=== PATIENT | female | born 1955 | race Asian ===

== ENCOUNTER 2018-02-27 16:54 | Emergency (ER) | payer OTHER, SELFPAY ==
[2018-02-27 16:59] VITALS: BP 151/70; PULSE 67; RESP 20; TEMP 36.6; O2SAT 97; BMI 23.0
--- NOTE | 2018-02-27 17:04 | DI.RAD.S_ITS ---
PROCEDURE: XR SHOULDER LT MIN 2V INDICATIONS: injury, pain TECHNIQUE: 3 views of the shoulder were acquired. COMPARISON: None. FINDINGS: Bones: No fractures or dislocations. No suspicious bony lesions. Visualized ribs appear intact. Mild periarticular osteophyte formation at the acromioclavicular joint humeral joints. Soft tissues: No suspicious soft tissue calcifications. IMPRESSION: Osteoarthritis. No acute fracture. No osseous lesion. If symptoms and/or clinical suspicion for pathology persist, further assessment with repeat, or advanced imaging (e.g., CT, MRI, or bone scan) may be helpful for further assessment. Dictated by: Eduin Flynn M.D. on 02/27/2018 at 17:23 Approved by: Eduin Flynn M.D. on 02/27/2018 at 17:23
--- NOTE | 2018-02-27 17:17 | DI.CT.S_ITS ---
PROCEDURE: CT HEAD/BRAIN WO CON INDICATIONS: hit head knocked out at work today TECHNIQUE: Noncontrast 4.5 mm thick angled axial sections acquired from the foramen magnum to the vertex, with coronal and sagittal reformats. For radiation dose reduction, the following was used: automated exposure control, adjustment of mA and/or kV according to patient size. COMPARISON: None. FINDINGS: Image quality: Excellent. CSF spaces: Basal cisterns are patent. No extra-axial fluid collections. The ventricles are symmetric in size and shape. Brain: No intracranial bleeds or masses. There is cerebral volume loss for age, with resultant ventricular and sulcal prominence. There are periventricular and deep white matter chronic small vessel ischemic changes. There is intracranial internal carotid artery atherosclerosis. Skull and face: Calvarium and visualized facial bones appear intact, without suspicious lesions. Sinuses: Visualized sinuses and mastoids are clear. IMPRESSION: No acute intracranial abnormality. Dictated by: Eduin Flynn M.D. on 02/27/2018 at 17:43 Approved by: Eduin Flynn M.D. on 02/27/2018 at 17:44
--- NOTE | 2018-02-27 19:19 | ED.FALL ---
HPI - Fall General Chief Complaint: Fall Stated Complaint: glf at work Time Seen by Provider: 02/27/18 18:47 Source: patient and family Mode of arrival: ambulatory Limitations: no limitations History of Present Illness HPI Narrative: 62F nonsmoker presents to the emergency department with a ground level fall and possible loss of consciousness just prior to her arrival. She states she felt a little bit dizzy and the next thing she knew she was surrounded by coworkers. She denies any ongoing symptoms. She denies chest pain or shortness of breath. She denies any recent illness with nausea, vomiting or diarrhea. She denies any fever or chills. She has a small abrasion above her left eye but denies any other injuries. She takes no blood thinners. She admits to frequent epigastric pain after drinking coffee or or misuse, she states that it feels burning in nature MD complaint: fall Onset (ago): minute(s) Fall from: standing Fall witnessed: yes, by bystander Place fall occurred: work Loss of consciousness: unsure Prolonged down time: no Symptoms prior to fall: lightheadedness Location of injury: head Severity: mild Related Data Home Medications Medication Instructions Recorded Confirmed DILTIAZEM HCL (DILTIA XT~) #0 07/10/12 simvastatin [Zocor] #0 07/10/12 Allergies Allergy/AdvReac Type Severity Reaction Status Date / Time LISINOPRIL Allergy Unknown Uncoded 08/22/17 12:24 Review of Systems Review of Systems All systems reviewed & are unremarkable except as noted in HPI and below Constitutional Denies chills, Denies fever(s), Denies lethargy and Denies weakness Eyes Denies change in vision, Denies eye discharge, Denies irritation and Denies loss of vision ENT Ears, Nose, Mouth, and Throat: Denies change in voice, Denies neck pain and Denies sore throat Cardiovascular Denies chest pain, Denies irregular heart rhythm, Denies lightheadedness, Denies palpitations, Denies dyspnea, Denies dyspnea on exertion and Denies orthopnea Respiratory Denies cough, Denies dyspnea, Denies dyspnea on exertion and Denies wheezing Gastrointestinal Gastrointestinal: Denies abdominal pain, Denies change in bowel habits, Denies diarrhea, Denies nausea and Denies vomiting Genitourinary Denies hematuria, Denies flank pain, Denies urinary incontinence and Denies urinary urgency Musculoskeletal Denies neck pain Integumentary/Breasts Denies pruritus, Denies erythema, Denies rash and Denies wounds Neurologic Denies confusion, Denies loss of vision and Denies weakness Psychiatric Denies anxiety, Denies confusion, Denies depression, Denies homicidal ideation and Denies suicidal ideation Endocrine Denies palpitations Hematologic/Lymphatic Denies easy bruising Allergic/Immunologic Denies wheezing Exam Narrative Exam Narrative: Pleasant 62-year-old female resting comfortably, in no obvious distress Initial Vital Signs Initial Vital Signs: Vital Signs Temperature 97.8 F 02/27/18 16:59 Pulse Rate 67 02/27/18 16:59 Respiratory Rate 20 02/27/18 16:59 Blood Pressure 151/70 H 02/27/18 16:59 Pulse Oximetry 97 02/27/18 16:59 Const General: cooperative and well developed Nutritional Appearance: well nourished Orientation: alert, awake, oriented x3 and not confused HENMT Head: abrasion (Small superficial abrasion above left lateral brow) Ears: external ears normal and TM's normal bilaterally Nose: external nose normal and No nasal discharge Face and sinus: sinuses nontender, face symmetric, no sinus tenderness and No dry mucous membranes Mouth: oral mucosae normal and moist mucous membranes Teeth and gingiva: dentition normal Throat: tonsils normal and uvula midline Eyes General: appearance normal, both eyes and all related structures Eyelids: eyelids normal Conjunctivae: conjunctivae normal Sclera: sclerae normal Pupils: PERRL EOM: EOM intact bilaterally Chest Chest: normal inspection of the chest Cardio Rate: regular rate Rhythm: regular rhythm Heart Sounds: no click, no gallops, no murmurs and no rubs Pulses: normal peripheral pulses GI Inspection: non-distended Palpation: soft, no hepatosplenomegaly, No guarding, No pulsatile mass and No tender Auscultation: normal bowel sounds Back/Spine/Pelvis Back: No CVA tenderness Cervical Spine: cervical ROM normal and No pain with cervical ROM Thoracic/Lumbar Spine: thoracic and lumbar spine normal to inspection Skin General: no rashes or lesions noted, No jaundice and No petechiae Trauma: abrasion Neuro General: alert, oriented x3, gait normal and no focal motor deficits Speech: speech normal Extrem General: full ROM, no clubbing, cyanosis or edema, no pedal edema and no calf tenderness Psych Appearance: well kempt Mental Status: mental status grossly normal Attitude: cooperative Thought Content: normal and suicidality Judgment: judgment good [facility] Social History Smoking Status: Never smoker Course Orders Ordered: Discontinued Medications Sodium Chloride (Normal Saline 0.9%) 1,000 mls @ 1,000 mls/hr IV BOLUS ONE Stop: 02/27/18 20:13 Last Infusion: 02/27/18 20:44 Dose: 0 mls/hr Admin: 02/27/18 19:40 Dose: 1,000 mls/hr Reevaluation(s) Reevaluation #1: Patient continues to feel at her baseline. Reevaluation #2: She is able to complete orthostatics without any symptoms and ambulates to the department with no trouble Vital Signs - 8 hr 02/27/18 16:59 Temperature 97.8 F Pulse Rate 67 Respiratory Rate 20 Blood Pressure 151/70 H Pulse Oximetry 97 MDM - Fall Differential Diagnosis Likely syncope, concussion with loss of consciousness and concussion without loss of consciousness Medical Records Attestation: I reviewed the patient's medical records. Lab Data Attestation: I reviewed the patient's lab results. Result diagrams: 02/27/18 19:47 02/27/18 19:47 Lab Results 02/27/18 02/27/18 Range/Units 19:47 19:47 WBC 12.2 H (4.5-11.0) X10^3/uL RBC 4.99 (4.0-5.2) X10^6/uL Hgb 15.6 (12.0-16.0) g/dL Hct 46.1 H (36-46) % MCV 92.4 (80-100) fL MCH 31.3 (26-34) PG MCHC 33.9 (30-36) % RDW 12.0 (11.6-14.8) % Plt Count 182 (150-400) X10^3/uL Neut % (Auto) 81.5 H (50-75) % Lymph % (Auto) 11.8 L (25-40) % Quay % (Auto) 5.2 (3-14) % Eos % (Auto) 1.0 L (2-4) % Baso % (Auto) 0.5 (0-2) % Neut # (Auto) 9900 H (9367-5591) /uL Sodium 142 (137-145) mmol/L Potassium 4.2 (3.4-5.1) mmol/L Chloride 103 (98-107) mmol/L Carbon Dioxide 28 (22-32) mmol/L BUN 17 (7-17) mg/dL Creatinine 0.60 (0.52-1.04) mg/dL Estimated GFR > 60.0 (>60) mL/min BUN/Creatinine Ratio 28.3 H (6-22) Glucose 109 (80-110) mg/dL Calcium 9.8 (8.4-10.2) mg/dL Total Bilirubin 0.4 (0.2-1.3) mg/dL AST 36 (14-36) IU/L ALT 31 (9-52) IU/L Alkaline Phosphatase 66 (38-126) U/L Total Creatine Kinase 124 (30-135) U/L CK-MB (CK-2) 1.44 (<2.37) ng/mL CK-MB (CK-2) Rel Index 1.2 L (1.5-5.0) % Troponin I < 0.012 (0.01-0.034) ng/mL Total Protein 8.2 (6.3-8.2) g/dL Albumin 5.2 H (3.5-5.0) g/dL Globulin 3.0 (1.7-4.1) g/dL Albumin/Globulin Ratio 1.7 (1.0-2.8) Urine Dip Bedside Urine Glucose Negative Bedside Urine Bilirubin - Negative Bedside Urine Ketone - Negative Urine Specific [place] 1.015 Bedside Urine Occult Blood - Negative Bedside Urine pH 6.5 Bedside Urine Protein - Negative Bedside Urine Urobilinogen - Negative Bedside Urine Nitrite - Negative Bedside Urine Leukocytes - Negative Esterase Imaging Data CT scan - head: Radiologist's impression: [address] [address] [address] Scan Report Signed Patient: Mary Herzog PMR#: [id number] : 5Acct:[id number] Age/Sex: 62 / FDate of Service: 02/27/18 Loc: ED Accession Number: [id number] Procedure: CT head/brain wo con Ordering Provider: Daniel,Aleida [employer] PROCEDURE: CT HEAD/BRAIN WO CON INDICATIONS: hit head knocked out at work today TECHNIQUE: Noncontrast 4.5 mm thick angled axial sections acquired from the foramen magnum to the vertex, with coronal and sagittal reformats. For radiation dose reduction, the following was used: automated exposure control, adjustment of mA and/or kV according to patient size. COMPARISON: None. FINDINGS: Image quality: Excellent. CSF spaces: Basal cisterns are patent. No extra-axial fluid collections. The ventricles are symmetric in size and shape. Brain: No intracranial bleeds or masses. There is cerebral volume loss for age, with resultant ventricular and sulcal prominence. There are periventricular and deep white matter chronic small vessel ischemic changes. There is intracranial internal carotid artery atherosclerosis. Skull and face: Calvarium and visualized facial bones appear intact, without suspicious lesions. Sinuses: Visualized sinuses and mastoids are clear. IMPRESSION: No acute intracranial abnormality. Dictated by: Eduin Flynn M.D. on 02/27/2018 at 17:43 Approved by: Eduin Flynn M.D. on 02/27/2018 at 17:44 Shoulder Xray: Radiologist's impression: XRay Report Signed Patient: Mary Herzog PMR#: [id number] : 5Acct:[id number] Age/Sex: 62 / FDate of Service: 02/27/18 Loc: ED Accession Number: [id number] Procedure: XR shoulder LT min 2V Ordering Provider: Laurie Russo MD PROCEDURE: XR SHOULDER LT MIN 2V INDICATIONS: injury, pain TECHNIQUE: 3 views of the shoulder were acquired. COMPARISON: None. FINDINGS: Bones: No fractures or dislocations. No suspicious bony lesions. Visualized ribs appear intact. Mild periarticular osteophyte formation at the acromioclavicular joint humeral joints. Soft tissues: No suspicious soft tissue calcifications. IMPRESSION: Osteoarthritis. No acute fracture. No osseous lesion. If symptoms and/or clinical suspicion for pathology persist, further assessment with repeat, or advanced imaging (e.g., CT, MRI, or bone scan) may be helpful for further assessment. Dictated by: Eduin Flynn M.D. on 02/27/2018 at 17:23 Approved by: Eduin Flynn M.D. on 02/27/2018 at 17:23 Discharge Plan Departure Patient Disposition: Home Clinical Impression: Abrasion of scalp, Concussion Discharge Date/Time: 02/27/18 22:07 Interventions: ED Discharge Assessment Last Done: 02/27/18 22:07 Instructions: DI for Abrasion Activity Restrictions/Additional Instructions: *You have been diagnosed with [ ground level fall with head injury, loss of consciousness, concussion, scalp abrasion] *What to do: *continue to take medications as directed *Follow up with your primary care provider in 2-3 days, call for an appointment. Let them know you were seen in the Emergency Department and that we ask that you be seen in follow up *Return to ER if you should have any new, worsening or concerning symptoms Prescriptions: No Action simvastatin [Zocor] 5 MG tablet Qty: 0 RF: 0 DILTIAZEM HCL (DILTIA XT~) Qty: 0 RF: 0
[2018-02-27] MEDS: SODIUM CHLORIDE 0.9% 1,000 ML 1000 ML IV (19:40)
[2018-02-27 19:55] LABS: Add Manual Diff / Slide Review NO; Basophils Percent Auto 0.5 % (0-2); Hematocrit 46.1 % (36-46); Hemoglobin 15.6 g/dL (12.0-16.0); Lymphocytes Percent Auto 11.8 % (25-40); Mean Corpuscular HGB Conc 33.9 % (30-36); Mean Corpuscular Hemoglobin 31.3 PG (26-34); Mean Corpuscular Volume 92.4 fL (80-100); Monocytes Percent Auto 5.2 % (3-14); Neutrophils Absolute Auto 9900 /uL (3000-5900); Neutrophils Percent Auto 81.5 % (50-75); Platelet Count 182 X10^3/uL (150-400); Red Blood Cell Count 4.99 X10^6/uL (4.0-5.2); White Blood Cell Count 12.2 X10^3/uL (4.5-11.0)
[2018-02-27 20:08] LABS: Alanine Aminotransferase 31 IU/L (9-52); Albumin 5.2 g/dL (3.5-5.0); Albumin Globulin Ratio 1.7 (1.0-2.8); Alkaline Phosphatase 66 U/L (38-126); Aspartate Aminotransferase 36 IU/L (14-36); BUN Creatinine Ratio 28.3 (6-22); Bilirubin Total 0.4 mg/dL (0.2-1.3); Blood Urea Nitrogen 17 mg/dL (7-17); Calcium 9.8 mg/dL (8.4-10.2); Carbon Dioxide 28 mmol/L (22-32); Chloride 103 mmol/L (98-107); Creatine Kinase 124 U/L (30-135); Estimated Glomerular Filt Rate > 60.0 mL/min (>60); Glucose 109 mg/dL (80-110); HEMOLYSIS 19 (0-50); Potassium 4.2 mmol/L (3.4-5.1); Sodium 142 mmol/L (137-145); Total Protein 8.2 g/dL (6.3-8.2)
[2018-02-27 20:18] VITALS: BP 129/54; PULSE 66; RESP 15; O2SAT 99
[2018-02-27 20:20] LABS: Troponin I < 0.012 ng/mL (0.01-0.034)
[2018-02-27 20:23] LABS: CKMB % Relative Index 1.2 % (1.5-5.0); Creatine Kinase MB 1.44 ng/mL (<2.37)
[2018-02-27 21:14] VITALS: BP 140/53; PULSE 66; RESP 14; O2SAT 98
[2018-02-27 21:51] VITALS: BP 131/58; BP 144/68; BP 159/70; PULSE 73; PULSE 77; PULSE 78
== END 2018-02-27 22:07 | disposition home or self-care (01) ==
PROVIDERS: Emergency Provider Emergency Medicine; Family Provider Family Medicine; PCP Family Medicine
DX: S00.01XA Abrasion of scalp, initial encounter (principal); S06.0X9A Concussion with loss of consciousness of unspecified duration, initial encounter; W18.30XA Fall on same level, unspecified, initial encounter
CPT/HCPCS: 36591; 70450; 73030; 80053; 81003; 82550; 82553; 84484; 85025; 93005; 93010; 96360; 99283; 99285

== ENCOUNTER 2018-08-23 09:33 | Emergency (ER) | payer OTHER, SELFPAY ==
[2018-08-23 09:35] VITALS: BP 151/70; PULSE 105; RESP 18; TEMP 38.4; O2SAT 95
[2018-08-23] MEDS: ACETAMINOPHEN 325 MG TABLET 975 MG PO (09:57)
--- NOTE | 2018-08-23 10:01 | DI.RAD.S_ITS ---
PROCEDURE: XR CHEST 2V INDICATIONS: shortness of breath TECHNIQUE: 2 views of the chest were acquired. COMPARISON: [facility], , CHEST 1 VIEW, 08/21/2013, 16:22. FINDINGS: Surgical changes and devices: None. Lungs and pleura: Lungs are clear. No pleural effusions or pneumothorax. Mediastinum: Mediastinal contours are normal. Heart size is normal. There is aortic atherosclerosis. Bones and chest wall: No suspicious bony abnormalities. Soft tissues appear unremarkable. IMPRESSION: Unremarkable chest. No acute cardiopulmonary process is evident. Dictated by: Rafael Paris M.D. on 08/23/2018 at 9:24 Approved by: Rafael Paris M.D. on 08/23/2018 at 9:25
--- NOTE | 2018-08-23 10:11 | ED.FEVER ---
HPI - Fever General Chief Complaint: Fever Stated Complaint: cough,sore throat, stomach pain,back pain Time Seen by Provider: 08/23/18 09:42 Source: patient and family Mode of arrival: ambulatory Limitations: no limitations History of Present Illness HPI Narrative: 62-year-old female nonsmoker with history of hypertension presents with 4 days of low-grade fever, sore throat, cough, body aches and back pain. She does have some sick work friends with similar symptoms. She denies any abdominal pain nor nausea, vomiting or diarrhea. She denies any significant fatigue or shortness of breath. She has had pneumonia before and wants to be sure she does not have another episode MD complaint: fever Onset (ago): day(s) Maximum Temperature: 101.2 F Temperature Source: oral Context: sick contacts Relieving factors: nothing Exacerbating factors: nothing Treatments prior to arrival fever: acetaminophen Related Data Home Medications Medication Instructions Recorded Confirmed atorvastatin 20 mg PO DAILY 08/23/18 08/23/18 diltiazem HCl 120 mg PO DAILY 08/23/18 08/23/18 losartan 25 mg PO DAILY 08/23/18 08/23/18 Previous Rx's Medication Instructions Recorded benzonatate [Tessalon Perles] 100 mg PO BID-TID PRN #14 cap 08/23/18 Allergies Allergy/AdvReac Type Severity Reaction Status Date / Time lisinopril Allergy Severe Anaphylaxis Verified 08/23/18 09:45 Review of Systems Constitutional Reports body ache(s), Reports chills, Reports fever(s), Denies lethargy and Denies weakness Eyes Denies change in vision, Denies eye discharge, Denies irritation and Denies loss of vision ENT Ears, Nose, Mouth, and Throat: Denies change in voice, Denies neck pain and Reports sore throat Cardiovascular Denies chest pain, Denies irregular heart rhythm, Denies lightheadedness, Denies palpitations, Denies dyspnea, Denies dyspnea on exertion and Denies orthopnea Respiratory Reports cough, Denies dyspnea, Denies dyspnea on exertion and Denies wheezing Gastrointestinal Gastrointestinal: Denies abdominal pain, Denies change in bowel habits, Denies diarrhea, Denies nausea and Denies vomiting Genitourinary Denies hematuria, Denies flank pain, Denies urinary incontinence and Denies urinary urgency Musculoskeletal Reports back pain and Denies neck pain Integumentary/Breasts Denies pruritus, Denies erythema, Denies rash and Denies wounds Neurologic Denies confusion, Denies loss of vision and Denies weakness Psychiatric Denies anxiety, Denies confusion, Denies depression, Denies homicidal ideation and Denies suicidal ideation Endocrine Denies palpitations Hematologic/Lymphatic Denies easy bruising Allergic/Immunologic Denies wheezing [facility] Social History Smoking Status: Never smoker Social History Smoking Status: Never smoker Exam Narrative Exam Narrative: GENERAL:62F, no obvious HEAD: Atraumatic. Normocephalic. No temporal or scalp tenderness. EYES: Pupils equal round and reactive. Extraocular motions intact. No scleral icterus. No injection or drainage. ENT: Nose without bleeding, purulent drainage or septal hematoma. Throat without erythema, tonsillar hypertrophy or exudate. Uvula midline. Airway patent. NECK: Trachea midline. No JVD or lymphadenopathy. Supple, nontender, no meningeal signs. CARDIOVASCULAR: Regular rate and rhythm without murmurs, gallops, or rubs. RESPIRATORY: Clear to auscultation. Breath sounds equal bilaterally. No wheezes, rales, or rhonchi. GASTROINTESTINAL: Abdomen soft, non-tender, nondistended. No hepato-splenomegaly, or palpable masses. No guarding. EXTREMITIES: No clubbing, cyanosis, or edema. No joint tenderness, effusion, or edema noted. BACK: Nontender without deformity or crepitance. No flank tenderness. NEURO: AOx3. SKIN: No rash or erythema. Initial Vital Signs Initial Vital Signs: Vital Signs Temperature 101.2 F H 08/23/18 09:35 Pulse Rate 105 H 08/23/18 09:35 Respiratory Rate 18 08/23/18 09:35 Blood Pressure 151/70 H 08/23/18 09:35 Pulse Oximetry 95 08/23/18 09:35 Course Orders Ordered: ED Orders 08/23/18 09:45 Influenza A and B by PCR Rapid Stat 08/23/18 10:01 XR chest 2V Stat Discontinued Medications Acetaminophen (Tylenol) 975 mg PO NOW ONE Stop: 08/23/18 09:46 Last Admin: 08/23/18 09:57 Dose: 975 mg Vital Signs - 8 hr 08/23/18 09:35 08/23/18 10:56 08/23/18 11:05 Temperature 101.2 F H 99.4 F Pulse Rate 105 H 94 H Respiratory Rate 18 16 Blood Pressure 151/70 H Blood Pressure [Left Arm] 120/55 L Pulse Oximetry 95 95 MDM - Fever Lab Data Lab Results 08/23/18 Range/Units 09:45 Influenza A & B (PCR) Negative (Negative) Imaging Data Chest x-ray: Radiologist's impression: Mary Herzog P 62 F 1955 [address] [address] XRay Report Signed Patient: Mary Herzog PMR#: [id number] : 5Acct:[id number] Age/Sex: 62 / FDate of Service: 08/23/18 Loc: ED Accession Number: [id number] Procedure: XR chest 2V Ordering Provider: Karlos Nixon D.O. PROCEDURE: XR CHEST 2V INDICATIONS: shortness of breath TECHNIQUE: 2 views of the chest were acquired. COMPARISON: [facility], , CHEST 1 VIEW, 08/21/2013, 16:22. FINDINGS: Surgical changes and devices: None. Lungs and pleura: Lungs are clear. No pleural effusions or pneumothorax. Mediastinum: Mediastinal contours are normal. Heart size is normal. There is aortic atherosclerosis. Bones and chest wall: No suspicious bony abnormalities. Soft tissues appear unremarkable. IMPRESSION: Unremarkable chest. No acute cardiopulmonary process is evident. Dictated by: Rafael Paris M.D. on 08/23/2018 at 9:24 Approved by: Rafael Paris M.D. on 08/23/2018 at 9:25 Discharge Plan Departure Patient Disposition: Home Clinical Impression: Upper respiratory infection, viral Discharge Date/Time: 08/23/18 11:07 Interventions: ED Discharge Assessment Last Done: 08/23/18 11:06 Instructions: DI for Fever (Symptom) -- Adult Activity Restrictions/Additional Instructions: *You have been diagnosed with [acute viral upper respiratory infection ] *What to do: *Take medications as directed: A prescription has been electronically transmitted to [email or web address] at your request *Follow up with your primary care provider in 2-3 days, call for an appointment. Let them know you were seen in the Emergency Department and that we ask that you be seen in follow up *Return to ER if you should have any new, worsening or concerning symptoms Prescriptions: New benzonatate [Tessalon Perles] 100 mg capsule 100 mg PO BID-TID PRN (Reason: cough) Qty: 14 RF: 0 No Action atorvastatin 20 mg tablet 20 mg PO DAILY RF: 0 diltiazem HCl 120 mg capsule,extended release 24 hr 120 mg PO DAILY RF: 0 losartan 25 mg tablet 25 mg PO DAILY RF: 0 Referrals: Joaquin Mike MD [Primary Care Provider] - Stand Alone Forms: Work Release Note
--- NOTE | 2018-08-23 10:14 | ED_ITS ---
HPI - Fever General Chief Complaint: Fever Stated Complaint: cough,sore throat, stomach pain,back pain Time Seen by Provider: 08/23/18 09:42 Source: patient and family Mode of arrival: ambulatory Limitations: no limitations History of Present Illness HPI Narrative: 62-year-old female nonsmoker with history of hypertension presents with 4 days of low-grade fever, sore throat, cough, body aches and back pain. She does have some sick work friends with similar symptoms. She denies any abdominal pain nor nausea, vomiting or diarrhea. She denies any significant fatigue or shortness of breath. She has had pneumonia before and wants to be sure she does not have another episode MD complaint: fever Onset (ago): day(s) Maximum Temperature: 101.2 F Temperature Source: oral Context: sick contacts Relieving factors: nothing Exacerbating factors: nothing Treatments prior to arrival fever: acetaminophen Related Data Home Medications Medication Instructions Recorded Confirmed atorvastatin 20 mg PO DAILY 08/23/18 08/23/18 diltiazem HCl 120 mg PO DAILY 08/23/18 08/23/18 losartan 25 mg PO DAILY 08/23/18 08/23/18 Previous Rx's Medication Instructions Recorded benzonatate [Tessalon Perles] 100 mg PO BID-TID PRN #14 cap 08/23/18 Allergies Allergy/AdvReac Type Severity Reaction Status Date / Time lisinopril Allergy Severe Anaphylaxis Verified 08/23/18 09:45 Review of Systems Constitutional Reports body ache(s), Reports chills, Reports fever(s), Denies lethargy and Denies weakness Eyes Denies change in vision, Denies eye discharge, Denies irritation and Denies loss of vision ENT Ears, Nose, Mouth, and Throat: Denies change in voice, Denies neck pain and Reports sore throat Cardiovascular Denies chest pain, Denies irregular heart rhythm, Denies lightheadedness, Denies palpitations, Denies dyspnea, Denies dyspnea on exertion and Denies orthopnea Respiratory Reports cough, Denies dyspnea, Denies dyspnea on exertion and Denies wheezing Gastrointestinal Gastrointestinal: Denies abdominal pain, Denies change in bowel habits, Denies diarrhea, Denies nausea and Denies vomiting Genitourinary Denies hematuria, Denies flank pain, Denies urinary incontinence and Denies urinary urgency Musculoskeletal Reports back pain and Denies neck pain Integumentary/Breasts Denies pruritus, Denies erythema, Denies rash and Denies wounds Neurologic Denies confusion, Denies loss of vision and Denies weakness Psychiatric Denies anxiety, Denies confusion, Denies depression, Denies homicidal ideation and Denies suicidal ideation Endocrine Denies palpitations Hematologic/Lymphatic Denies easy bruising Allergic/Immunologic Denies wheezing [facility] Social History Smoking Status: Never smoker Social History Smoking Status: Never smoker Exam Narrative Exam Narrative: GENERAL:62F, no obvious HEAD: Atraumatic. Normocephalic. No temporal or scalp tenderness. EYES: Pupils equal round and reactive. Extraocular motions intact. No scleral icterus. No injection or drainage. ENT: Nose without bleeding, purulent drainage or septal hematoma. Throat without erythema, tonsillar hypertrophy or exudate. Uvula midline. Airway patent. NECK: Trachea midline. No JVD or lymphadenopathy. Supple, nontender, no meningeal signs. CARDIOVASCULAR: Regular rate and rhythm without murmurs, gallops, or rubs. RESPIRATORY: Clear to auscultation. Breath sounds equal bilaterally. No wheezes, rales, or rhonchi. GASTROINTESTINAL: Abdomen soft, non-tender, nondistended. No hepato- splenomegaly, or palpable masses. No guarding. EXTREMITIES: No clubbing, cyanosis, or edema. No joint tenderness, effusion, or edema noted. BACK: Nontender without deformity or crepitance. No flank tenderness. NEURO: AOx3. SKIN: No rash or erythema. Initial Vital Signs Initial Vital Signs: Vital Signs Temperature 101.2 F H 08/23/18 09:35 Pulse Rate 105 H 08/23/18 09:35 Respiratory Rate 18 08/23/18 09:35 Blood Pressure 151/70 H 08/23/18 09:35 Pulse Oximetry 95 08/23/18 09:35 Course Orders Ordered: ED Orders 08/23/18 09:45 Influenza A and B by PCR Rapid Stat 08/23/18 10:01 XR chest 2V Stat Discontinued Medications Acetaminophen (Tylenol) 975 mg PO NOW ONE Stop: 08/23/18 09:46 Last Admin: 08/23/18 09:57 Dose: 975 mg Vital Signs - 8 hr 08/23/18 09:35 08/23/18 10:56 08/23/18 11:05 Temperature 101.2 F H 99.4 F Pulse Rate 105 H 94 H Respiratory Rate 18 16 Blood Pressure 151/70 H Blood Pressure [Left Arm] 120/55 L Pulse Oximetry 95 95 MDM - Fever Lab Data Lab Results 08/23/18 Range/Units 09:45 Influenza A & B (PCR) Negative (Negative) Imaging Data Chest x-ray: Radiologist's impression: Mary Herzog P 62 F [address] [address] XRay Report Signed Patient: Mary Herzog PMR#: [id number] : 5Acct:[id number] Age/Sex: 62 / FDate of Service: 08/23/18 Loc: ED Accession Number: [id number] Procedure: XR chest 2V Ordering Provider: Karlos Nixon D.O. PROCEDURE: XR CHEST 2V INDICATIONS: shortness of breath TECHNIQUE: 2 views of the chest were acquired. COMPARISON: [facility], , CHEST 1 VIEW, 08/21/2013, 16:22. FINDINGS: Surgical changes and devices: None. Lungs and pleura: Lungs are clear. No pleural effusions or pneumothorax. Mediastinum: Mediastinal contours are normal. Heart size is normal. There is aortic atherosclerosis. Bones and chest wall: No suspicious bony abnormalities. Soft tissues appear unremarkable. IMPRESSION: Unremarkable chest. No acute cardiopulmonary process is evident. Dictated by: Rafael Paris M.D. on 08/23/2018 at 9:24 Approved by: Rafael Paris M.D. on 08/23/2018 at 9:25 Discharge Plan Departure Patient Disposition: Home Clinical Impression: Upper respiratory infection, viral Discharge Date/Time: 08/23/18 11:07 Interventions: ED Discharge Assessment Last Done: 08/23/18 11:06 Instructions: DI for Fever (Symptom) -- Adult Activity Restrictions/Additional Instructions: *You have been diagnosed with [acute viral upper respiratory infection ] *What to do: *Take medications as directed: A prescription has been electronically transmitted to [facility] at your request *Follow up with your primary care provider in 2-3 days, call for an appointment. Let them know you were seen in the Emergency Department and that we ask that you be seen in follow up *Return to ER if you should have any new, worsening or concerning symptoms Prescriptions: New benzonatate [Tessalon Perles] 100 mg capsule 100 mg PO BID-TID PRN (Reason: cough) Qty: 14 RF: 0 No Action atorvastatin 20 mg tablet 20 mg PO DAILY RF: 0 diltiazem HCl 120 mg capsule,extended release 24 hr 120 mg PO DAILY RF: 0 losartan 25 mg tablet 25 mg PO DAILY RF: 0 Referrals: Joaquin Mike MD [Primary Care Provider] - Stand Alone Forms: Work Release Note
[2018-08-23 10:41] LABS: Influenza A and B by PCR Rapid Negative (Negative)
[2018-08-23 10:56] VITALS: BP 120/55; PULSE 94; RESP 16; O2SAT 95
[2018-08-23 11:05] VITALS: TEMP 37.4
== END 2018-08-23 11:07 | disposition home or self-care (01) ==
PROVIDERS: Emergency Provider Emergency Medicine; Family Provider Family Medicine; PCP Family Medicine
DX: J06.9 Acute upper respiratory infection, unspecified (principal)
CPT/HCPCS: 71046; 87400; 99282; 99283

== ENCOUNTER 2019-01-23 20:24 | Emergency (ER) | payer OTHER, SELFPAY ==
[2019-01-23 20:32] VITALS: BP 141/55; PULSE 68; RESP 20; TEMP 36.7; O2SAT 97
[2019-01-23 21:17] LABS: Add Manual Diff / Slide Review NO; Basophils Absolute Auto 100 /uL (0-100); Eosinophils Absolute Auto 200 /uL (0-450); Eosinophils Percent Auto 3.5 % (2-4); Hematocrit 43.4 % (36-46); Hemoglobin 14.9 g/dL (12.0-16.0); Lymphocytes Absolute Auto 1600 /uL (1100-4500); Lymphocytes Percent Auto 26.9 % (25-40); Mean Corpuscular HGB Conc 34.3 % (30-36); Mean Corpuscular Hemoglobin 31.6 PG (26-34); Mean Corpuscular Volume 92.2 fL (80-100); Monocytes Absolute Auto 400 /uL (0-900); Monocytes Percent Auto 7.4 % (3-14); Neutrophils Absolute Auto 3600 /uL (1500-7000); Neutrophils Percent Auto 61.2 % (50-75); Platelet Count 159 X10^3/uL (150-400); Red Cell Distribution Width 12.1 % (11.6-14.8)
[2019-01-23 21:24] LABS: Blood Urea Nitrogen 18 mg/dL (7-17); Carbon Dioxide 29 mmol/L (22-32); Chloride 101 mmol/L (98-107); Estimated Glomerular Filt Rate > 60.0 mL/min (>60); Glucose 127 mg/dL (80-110); HEMOLYSIS 16 (0-50); Potassium 3.9 mmol/L (3.4-5.1); Sodium 140 mmol/L (137-145)
[2019-01-23 21:45] VITALS: BP 134/94; PULSE 54; RESP 14; O2SAT 95
[2019-01-23] MEDS: MECLIZINE HCL 12.5 MG TABLET 25 MG PO (21:58)
--- NOTE | 2019-01-23 22:39 | PC.NURSE ---
pt ambulating to bathroom
--- NOTE | 2019-01-23 22:46 | ED.GENADULT ---
HPI - General Adult General Chief complaint: Dizziness Stated complaint: thinks having a stroke Time Seen by Provider: 01/23/19 21:39 Source: patient Mode of arrival: ambulatory Limitations: no limitations History of Present Illness HPI narrative: A 63-year-old female here for evaluation of dizziness. Patient states that it started earlier today. It started after she stood of from bending over. She describes it as a room spinning sensation. She has had symptoms like this in the past that resolved on their own. She denies any other associated symptoms. She was told to come in for evaluation by her coworkers. Related Data Home Medications Medication Instructions Recorded Confirmed atorvastatin 20 mg PO DAILY 08/23/18 08/23/18 diltiazem HCl 120 mg PO DAILY 08/23/18 08/23/18 losartan 25 mg PO DAILY 08/23/18 08/23/18 Previous Rx's Medication Instructions Recorded benzonatate [Tessalon Perles] 100 mg PO BID-TID PRN #14 cap 08/23/18 loratadine [Claritin] 10 mg PO DAILY PRN #30 tab 01/23/19 meclizine 25 mg PO BID-TID PRN #14 tab 01/23/19 Allergies Allergy/AdvReac Type Severity Reaction Status Date / Time lisinopril Allergy Severe Anaphylaxis Verified 08/23/18 09:45 Review of Systems Constitutional Constitutional: Denies fatigue, Denies fever(s), Denies frequent falls and Denies headache(s) Eyes Eyes: Denies blurry vision, Denies change in vision and Denies diplopia ENT Ears, Nose, Mouth, and Throat: Reports vertigo, Reports dizziness, Denies facial pain, Denies headache(s), Denies tinnitus, Denies sinus pressure and Denies sore throat Cardiovascular Cardiovascular: Denies chest pain and Denies dyspnea Respiratory Respiratory: Denies cough and Denies dyspnea Gastrointestinal Gastrointestinal: Denies abdominal pain, Denies nausea and Denies vomiting Genitourinary Genitourinary: Denies dysuria Musculoskeletal Musculoskeletal: Denies myalgias, Denies arthralgias and Denies numbness Integumentary/Breasts Skin/Breast: Denies lesions and Denies rash Neurologic Neurologic: Denies abnormal speech, Denies behavioral changes, Denies confusion, Reports vertigo, Reports dizziness, Denies frequent falls, Denies headache(s), Denies focal weakness, Denies numbness, Denies radicular pain and Denies paresthesias Psychiatric Psychiatric: Denies behavioral changes and Denies confusion Endocrine Endocrine: Denies fatigue Hematologic/Lymphatic Hematologic/Lymphatic: Denies easy bleeding and Denies easy bruising Allergic/Immunologic Allergic/Immunologic: Denies urticaria PFSH Medical History Hyperlipidemia (Acute) Social History Smoking Status: Never smoker Social History Smoking Status: Never smoker Exam Initial Vital Signs Initial Vital Signs: Vital Signs Temperature 98.1 F 01/23/19 20:32 Pulse Rate 68 01/23/19 20:32 Respiratory Rate 20 01/23/19 20:32 Blood Pressure 141/55 H 01/23/19 20:32 Pulse Oximetry 97 01/23/19 20:32 Const General: cooperative, healthy appearing, comfortable, well developed, well groomed and No acute distress Orientation: alert, awake and oriented x3 HENMT Head: normal to inspection and normocephalic Ears: TM normal on the right and TM abnormal bulging on the left and dull on the left; not erythematous Eyes Pupils: PERRL EOM: EOM intact bilaterally Resp Effort & Inspection: normal respiratory effort Auscultation: clear to auscultation bilaterally Cardio Rate: regular rate Rhythm: regular rhythm GI Inspection: non-distended Palpation: soft Skin Lesions: no lesions Rashes: no rashes Neuro General: alert and awake Cranial Nerves: CN's II-XI intact bilaterally Cognition: normal cognition Speech: speech normal Gait: normal gait Motor: muscle tone normal throughout Sensory Exam: no sensory deficits noted Extrem General: normal to inspection and capillary refill normal Psych Appearance: grossly normal and well kempt Scores GCS Bertrand coma scale eye opening: Spontaneous Bertrand coma scale verbal response: Orientated Bertrand coma scale motor response: Obey commands Bertrand coma scale total score: 15 Course Orders Ordered: ED Orders 01/23/19 20:33 EKG-12 Lead Stat 01/23/19 21:00 BMP [Basic Metabolic Panel] Stat Complete Blood Count AUTO DIFF Stat Discontinued Medications Meclizine HCl (Antivert) 25 mg PO NOW ONE Stop: 01/23/19 21:48 Last Admin: 01/23/19 21:58 Dose: 25 mg Documented by: HFARRINGTO Vital Signs Vital signs: Vital Signs - 8 hr 01/23/19 20:32 01/23/19 21:45 01/23/19 22:51 Temperature 98.1 F Pulse Rate 68 54 L Respiratory Rate 20 14 Blood Pressure 141/55 H Blood Pressure [Left Arm] 134/94 H 153/77 H Pulse Oximetry 97 95 01/23/19 23:00 Temperature Pulse Rate 56 L Respiratory Rate 16 Blood Pressure Blood Pressure [Left Arm] Pulse Oximetry 96 Medical Decision Making Medical Records Medical records reviewed: Yes I reviewed the patient's medical records. Lab Data Lab results reviewed: Yes I reviewed the patient's lab results. Result diagrams: 01/23/19 21:00 01/23/19 21:00 Labs: Lab Results 01/23/19 01/23/19 Range/Units 21:00 21:00 WBC 6.0 (4.5-11.0) X10^3/uL RBC 4.70 (4.0-5.2) X10^6/uL Hgb 14.9 (12.0-16.0) g/dL Hct 43.4 (36-46) % MCV 92.2 (80-100) fL MCH 31.6 (26-34) PG MCHC 34.3 (30-36) % RDW 12.1 (11.6-14.8) % Plt Count 159 (150-400) X10^3/uL Neut % (Auto) 61.2 (50-75) % Lymph % (Auto) 26.9 (25-40) % [place] % (Auto) 7.4 (3-14) % Eos % (Auto) 3.5 (2-4) % Baso % (Auto) 1.0 (0-2) % Neut # (Auto) 3600 (1740-9585) /uL Lymph # (Auto) 1600 (1747-0945) /uL [place] # (Auto) 400 (0-900) /uL Eos # (Auto) 200 (0-450) /uL Baso # (Auto) 100 (0-100) /uL Sodium 140 (137-145) mmol/L Potassium 3.9 (3.4-5.1) mmol/L Chloride 101 (98-107) mmol/L Carbon Dioxide 29 (22-32) mmol/L BUN 18 H (7-17) mg/dL Creatinine 0.60 (0.52-1.04) mg/dL Estimated GFR > 60.0 (>60) mL/min BUN/Creatinine Ratio 30.0 H (6-22) Glucose 127 H (80-110) mg/dL Calcium 10.0 (8.4-10.2) mg/dL Urine Dip Bedside Urine Glucose Negative Bedside Urine Bilirubin - Negative Bedside Urine Ketone - Negative Urine Specific [place] 1.010 Bedside Urine Occult Blood - Negative Bedside Urine pH 6.0 Bedside Urine Protein - Negative Bedside Urine Urobilinogen - Negative Bedside Urine Nitrite - Negative Bedside Urine Leukocytes - Negative Esterase Point of care testing: Urine Dip Bedside Urine Glucose Negative Bedside Urine Bilirubin - Negative Bedside Urine Ketone - Negative Urine Specific [place] 1.010 Bedside Urine Occult Blood - Negative Bedside Urine pH 6.0 Bedside Urine Protein - Negative Bedside Urine Urobilinogen - Negative Bedside Urine Nitrite - Negative Bedside Urine Leukocytes - Negative Esterase ECG Data Attestation: I personally reviewed and interpreted this ECG as follows: Prior ECG tracings: not available for review Interpretation: Sinus rhythm Ventricular rate is 64 Normal axis Normal QRS Normal QTC No ST T wave changes MDM Narrative Medical decision making narrative: Patient was given meclizine and afterwards she reported a complete resolution of all of her symptoms. She was able to ambulate to the restroom without any problems. Her symptoms were vertiginous in nature. After my initial exam when I went back in for re-evaluation patient is states that over the past couple days she has noticed a fullness in her left ear. She does have fluid behind her left ear. No signs of erythema. I do have a strong suspicion for peripheral vertigo. She has a normal neurologic exam otherwise. Will send home with prescription for vertigo and also decongestants. She expressed understanding and agreement with plan. Discharge Plan Departure Patient Disposition: Home Clinical Impression: Vertigo Otitis media Qualifiers: Otitis media type: serous Chronicity: acute Laterality: left Recurrence: not specified as recurrent Qualified Code(s): H65.02 - Acute serous otitis media, left ear Discharge Date/Time: 01/23/19 23:01 Instructions: DI for Vertigo Activity Restrictions/Additional Instructions: Recommend you take the medications as directed. Be sure you are being careful when your changing positions. Contact your primary provider for a follow-up. Return to the emergency department for any new or worsening symptoms Prescriptions: New meclizine 25 mg tablet 25 mg PO BID-TID PRN (Reason: dizziness) Qty: 14 RF: 0 loratadine [Claritin] 10 mg tablet 10 mg PO DAILY PRN (Reason: allergy symptoms) Qty: 30 RF: 0 No Action atorvastatin 20 mg tablet 20 mg PO DAILY RF: 0 diltiazem HCl 120 mg capsule,extended release 24 hr 120 mg PO DAILY RF: 0 losartan 25 mg tablet 25 mg PO DAILY RF: 0 benzonatate [Tessalon Perles] 100 mg capsule 100 mg PO BID-TID PRN (Reason: cough) Qty: 14 RF: 0 Referrals: Joaquin Mike MD [Primary Care Provider] -
[2019-01-23 22:51] VITALS: BP 153/77
[2019-01-23 23:00] VITALS: PULSE 56; RESP 16; O2SAT 96
== END 2019-01-23 23:01 | disposition home or self-care (01) ==
PROVIDERS: Emergency Provider Emergency Medicine; Family Provider Family Medicine; PCP Family Medicine
DX: R42 Dizziness and giddiness (principal); H65.02 Acute serous otitis media, left ear
CPT/HCPCS: 36591; 80048; 81003; 85025; 93005; 93010; 99282; 99284